=== PATIENT | female | born 1995 | race Caucasian/White ===

== ENCOUNTER 2024-08-11 11:49 | Emergency (ER) | payer BC ==
[2024-08-11 12:02] VITALS: RESP 18; BMI 34.9
[2024-08-11 13:08] LABS: ABSOLUTE IMMATURE GRANULOCYTES 0.03 x10^3/uL (0.0-0.031); BASOPHILS # 0.03 x10^3/uL (0.01-0.08); EOSINOPHIL % 0.4 % (0.7-5.8); EOSINOPHILS # 0.04 x10^3/uL (0.04-0.36); HEMATOCRIT 42.3 % (34.1-44.9); HEMOGLOBIN 14.1 g/dL (11.2-15.7); MCHC 33.3 g/dl (32.2-35.5); MEAN CELL VOLUME 93.6 fl (79.4-94.8); MEAN PLT VOLUME 10.2 fl (9.4-12.3); MONOCYTE # 0.55 x10^3/uL (0.24-0.86); MONOCYTE % 5.7 % (4.7-12.5); PLATELET COUNT 244 x10^3/uL (182-369); RDW 12.3 % (12.1-16.5)
[2024-08-11 13:35] LABS: POTASSIUM 4.2 mmol/L (3.5-5.1)
[2024-08-11 13:37] LABS: ALBUMIN 3.7 g/dl (3.4-5.0); BLOOD UREA NITROGEN 14.3 mg/dL (7-18); CALCIUM 9.1 mg/dL (8.5-10.1)
[2024-08-11 13:41] LABS: CREATININE 0.9 mg/dL (0.55-1.3)
[2024-08-11 13:42] LABS: BILIRUBIN,TOTAL 0.4 mg/dL (0.2-1); TOT PROT 7.5 g/dl (6.4-8.2)
[2024-08-11 14:26] LABS: HCV DIAGNOSTIC IN-HOUSE W/RFLX NON-REACTIVE (NONREACTIVE); HIV INTERPRETATION NEGATIVE (NEGATIVE)
[2024-08-11 16:58] VITALS: BP 107/64; PULSE 75; TEMP 98.4
== END 2024-08-11 17:13 | disposition left against medical advice (07) ==
LOC: JER 11:49
DX: R00.2 Palpitations (principal); R06.02 Shortness of breath; L98.9 Disorder of the skin and subcutaneous tissue, unspecified; R07.89 Other chest pain
CPT/HCPCS: 0241U-QW; 36415; 71046-TC-FY; 80053; 84439; 84443; 84484; 85025; 86803; 87389; 93005; 93010; 99285-25